=== PATIENT | female | born 1935 | race Caucasian/White ===

== ENCOUNTER 2016-08-26 23:28 | Emergency (ER) | payer OTHER ==
[~2016-08-26] VITALS: Ht 157.5 cm; Wt 66.2 kg
[2016-08-27 00:06] LABS: ADD MIUA? YES; BILIRUBIN NEGATIVE; BLOOD LARGE; COLOR YELLOW ((YELLOW)); GLUCOSE (STRIP) NEGATIVE; KETONES NEGATIVE; LEUKOCYTES TRACE; NITRITE NEGATIVE; PROTEIN (STRIP) NEGATIVE; SPECIFIC GRAVITY 1.008 (1.000-1.030); UROBILINOGEN 0.2 MG/DL (0.2-1.0)
[2016-08-27 00:13] LABS: HEMATOCRIT 37.6 % (36.0-46.0); MCH 28.4 PG (29.0-34.0); MCHC 31.1 G/DL (30.0-36.0); MCV 91.3 FL (83-99); MEAN PLAT.VOLUME 9.7 uM^3 (9.5-12.4); PLATELET COUNT 297 K/uL (156-360); RBC DIS.WIDTH-CV 13.5 % (11.8-14.6); RBC DIS.WIDTH-SD 45.3 % (39-53); RED BLOOD COUNT 4.12 M/uL (3.80-5.20); WHITE BLOOD COUNT 9.8 K/uL (4.1-10.2)
[2016-08-27 00:21] LABS: PROTHROMBIN TIME 10.3 (9.2-11.2); PTT 24.8 (25-32)
[2016-08-27 00:23] LABS: CHLORIDE 108 mEq/L (99-109); POTASSIUM 4.5 mEq/L (3.7-5.4); SODIUM 137 mEq/L (136-147)
[2016-08-27 00:24] LABS: BACTERIA NONE SEEN /HPF; EPITHELIAL CELLS RARE /HPF; MUCUS TRACE /LPF; RED BLOOD CELLS 30-40 /HPF (0-5); UCUL ADDED? NO; WHITE BLOOD CELLS 0-5 /HPF (0-5)
[2016-08-27 00:25] LABS: GLUCOSE 107 mg/dL (70-99)
[2016-08-27 00:26] LABS: ANION GAP 6 MEQ/L (2-14)
[2016-08-27 00:27] LABS: TOTAL BILIRUBIN 0.3 mg/dL (0.0-1.0)
[2016-08-27 00:29] LABS: ALKALINE PHOSPHATASE 62 IU/L (3-129); GFR ESTIMATE (CALCULATED) 42 mL/min/
[2016-08-27 00:30] LABS: UREA NITROGEN (BUN) 23 mg/dL (9-23)
[2016-08-27 02:37] VITALS: BP 155/90
== END 2016-08-27 02:38 | disposition home or self-care (01) ==
LOC: EME 23:28
PROVIDERS: Emergency Medicine
DX: R31.9 Hematuria, unspecified (principal); K92.1 Melena; I10 Essential (primary) hypertension; E78.5 Hyperlipidemia, unspecified; Z90.49 Acquired absence of other specified parts of digestive tract; Z79.82 Long term (current) use of aspirin
CPT/HCPCS: 74177; 76856; 80053; 81003; 83605; 85027; 85610; 85730; 86900; 86901; 99281; 99285

== ENCOUNTER → 2016-09-10 | Outpatient (CLI) | payer MEDICARE | END | disposition home or self-care (01) | LOC: CDC 14:26 | DX: R00.1 Bradycardia, unspecified (principal) | CPT/HCPCS: 93000 ==

== ENCOUNTER 2016-09-18 05:16 | Day surgery (SDC) | payer OTHER ==
[~2016-09-18] VITALS: Ht 157.5 cm; Wt 65.0 kg
[~2016-09-18 05:16] MED LIST: AVAPRO75 MG PO; CALCIUM + D3 E1 EACH PO; COREG12.5 M1 PO; GERITOL COMP1 TABLET PO; LEVO-T125 MCG PO; NEXIUM20 MG PO; PRAVACHOL40 MG PO; ULTRACET1 TABLET PO
[2016-09-18 06:13] VITALS: BP 159/74
[2016-09-18 09:23] VITALS: BP 124/86
[2016-09-18 09:56] VITALS: BP 155/66
== END 2016-09-18 10:00 | disposition home or self-care (01) ==
LOC: SDC 05:16
DX: N95.0 Postmenopausal bleeding (principal); N84.1 Polyp of cervix uteri; E11.9 Type 2 diabetes mellitus without complications; K21.9 Gastro-esophageal reflux disease without esophagitis; E78.5 Hyperlipidemia, unspecified; I10 Essential (primary) hypertension; E03.9 Hypothyroidism, unspecified; Z80.3 Family history of malignant neoplasm of breast; Z87.448 Personal history of other diseases of urinary system; Z87.891 Personal history of nicotine dependence; Z88.8 Allergy status to other drugs, medicaments and biological substances
CPT/HCPCS: 88305; J0131; J0461; J1100; J1885; J2405; J2710; J3010